=== PATIENT | female | born 1975 | race Hispanic/Latino ===

== ENCOUNTER 2019-05-01 12:17 | Emergency (ER) | payer MEDICAID, OTHER ==
[2019-05-01] MEDS ORDERED: LIDOCAINE HCL 2% VISCOUS 15 ML UDCUP ONE (13:21)
[2019-05-01] MEDS ORDERED: MAG HYDROX/AL HYDROX/SIMETH ES 30 ML SUSP UDCUP ONE (13:21)
[2019-05-01] MEDS ORDERED: ONDANSETRON HCL 4 MG/2 ML VIAL ONE (13:21)
[2019-05-01 13:40] LABS: BASOPHILS % (AUTO) 0.2 % (0.0-5.0); EOSINOPHILS % (AUTO) 1.9 % (0.0-8.0); HEMATOCRIT 40.3 % (36-48); LYMPHOCYTES % (AUTO) 26.9 % (21.0-51.0); MEAN CORPUSCULAR HEMOGLOBIN 29.7 pg (27.0-33.0); MEAN CORPUSCULAR HGB CONC 34.9 g/dL (32.0-36.0); MEAN CORPUSCULAR VOLUME 85.2 fL (79-99); MONOCYTES % (AUTO) 7.8 % (3.0-13.0); NEUTROPHILS % (AUTO) 63.2 % (40.0-77.0); PLATELET COUNT (AUTO) 268 K/uL (130-400); RED BLOOD CELL COUNT(AUTO) 4.73 MIL/uL (4.00-5.50); RED CELL DISTRIBUTION WIDTH 13.4 % (11.0-15.5); WHITE BLOOD COUNT (AUTO) 7.7 K/uL (4.8-10.8)
[2019-05-01 13:41] LABS: APPEARANCE,URINE Clear (CLEAR); BILIRUBIN,URINE Negative (NEGATIVE); COLOR,URINE Yellow (YELLOW); GLUCOSE, URINE (UA) Negative (NEGATIVE); KETONES,URINE Negative (NEGATIVE); LEUKOCYTE ESTERASE ,URINE Small (NEGATIVE); NITRATE,URINE Negative (NEGATIVE); OCCULT BLOOD,URINE Large (NEGATIVE); PH,URINE 5.5 (5.0-8.0); PROTEIN,URINE Negative (NEGATIVE)
[2019-05-01 13:47] LABS: HCG,QUAL RESULT NEGATIVE (NEGATIVE)
[2019-05-01 13:49] LABS: BACTERIA,URINE Rare /HPF (None Seen); RBC,URINE TNTC /HPF (0-1); SQUAMOUS EPITHELIAL CELL,UR Rare /HPF (0-2); WBC,URINE 0-1 /HPF (0-1)
[2019-05-01 13:50] LABS: CREATININE 0.8 mg/dL (0.5-1.5); POTASSIUM 3.4 mmol/L (3.5-5.1)
[2019-05-01 13:54] LABS: ALBUMIN 4.3 g/dL (3.5-5.0); BILIRUBIN,TOTAL 0.8 mg/dL (0.2-1.0); TOTAL PROTEIN, SERUM 8.3 g/dL (6.0-8.3)
== END 2019-05-01 13:46 | disposition home or self-care (01) ==
LOC: EDH 12:17
DX: K29.00 Acute gastritis without bleeding (principal); Z88.2 Allergy status to sulfonamides; Z88.6 Allergy status to analgesic agent; Z98.890 Other specified postprocedural states
CPT/HCPCS: 36415; 74176; 76705; 80053; 81001; 81025; 82150; 83690; 85025; 93005; 96374; 99285; J2405

== ENCOUNTER 2023-01-07 12:04 | Emergency (ER) | payer OTHER ==
[~2023-01-07] VITALS: Ht 167.6 cm; Wt 104.3 kg
[2023-01-07 12:34] LABS: BASOPHILS % (AUTO) 0.2 % (0.0-5.0); CREATININE 0.7 mg/dL (0.5-1.5); EOSINOPHILS % (AUTO) 1.3 % (0.0-8.0); LYMPHOCYTES % (AUTO) 26.4 % (21.0-51.0); MEAN CORPUSCULAR HEMOGLOBIN 29.2 pg (27.0-33.0); MONOCYTES % (AUTO) 5.1 % (3.0-13.0); NEUTROPHILS % (AUTO) 66.8 % (40.0-77.0); PLATELET COUNT (AUTO) 297 K/uL (130-400); POTASSIUM 3.5 mmol/L (3.5-5.1); RED BLOOD CELL COUNT(AUTO) 4.65 MIL/uL (4.00-5.50); RED CELL DISTRIBUTION WIDTH 13.4 % (11.0-15.5); WHITE BLOOD COUNT (AUTO) 9.7 K/uL (4.8-10.8)
[2023-01-07 12:35] LABS: INR 0.93 (0.85-1.15); PROTHROMBIN TIME 10.2 SEC (9.6-11.6)
[2023-01-07 12:37] LABS: PARTIAL THROMBOPLASTIN TIME 29.8 SEC (26.3-35.5)
[2023-01-07 12:41] LABS: ALBUMIN 4.2 g/dL (3.5-5.0); TOTAL PROTEIN, SERUM 7.8 g/dL (6.0-8.3)
[2023-01-07 13:50] LABS: B-TYPE NATRIURETIC PEPTIDE 7 pg/mL (0-100)
[2023-01-07 14:03] VITALS: BP 138/80
== END 2023-01-07 14:12 | disposition home or self-care (01) ==
LOC: EDH 12:04
DX: R20.2 Paresthesia of skin (principal); G51.0 Bell's palsy; Z88.2 Allergy status to sulfonamides; Z88.5 Allergy status to narcotic agent; Z88.8 Allergy status to other drugs, medicaments and biological substances
CPT/HCPCS: 36415; 70450; 71045; 80053; 82550; 83721; 83880; 84484; 85025; 85610; 85730; 93005

== ENCOUNTER 2023-05-26 20:34 | Emergency (ER) | payer OTHER ==
[~2023-05-26] VITALS: Ht 165.1 cm; Wt 104.3 kg
[2023-05-26] MEDS ORDERED: IBUP-2077 PO (21:38)
[2023-05-26 22:17] VITALS: BP 158/87; PULSE 96; RESP 17; O2SAT 100
== END 2023-05-26 22:19 | disposition home or self-care (01) ==
LOC: EDH 20:34
DX: S96.811A Strain of other specified muscles and tendons at ankle and foot level, right foot, initial encounter (principal); Z98.890 Other specified postprocedural states; Z88.2 Allergy status to sulfonamides; Z88.5 Allergy status to narcotic agent; Z88.8 Allergy status to other drugs, medicaments and biological substances; W18.39XA Other fall on same level, initial encounter; Y93.67 Activity, basketball; Y92.89 Other specified places as the place of occurrence of the external cause; Y99.8 Other external cause status
CPT/HCPCS: 73590; 73610

== ENCOUNTER 2024-12-16 12:51 | Emergency (ER) | payer OTHER ==
[~2024-12-16] VITALS: Ht 167.6 cm; Wt 106.6 kg
[~2024-12-16 12:51] MED LIST: IBUP-2077 PO
--- NOTE | 2024-12-16 13:12 | ERN ---
General Chief Complaint: Numbness Stated Complaint: NUMBNESS ON FACE Time Seen by MD: 12:52 Time Seen by Midlevel: 12:52 Source: patient History of Present Illness Initial Comments The patient is a 49-year-old female presenting to the emergency department for evaluation of left-sided numbness that started 30 minutes prior to arrival at approximately 12:30 p.m. today. Patient states she had arrived home when the numbness started. The numbness starts at the top of her forehead and is all the way down to her left ankle. She specifically denies any focal weakness. Denies any history of stroke. She does report a similar episode in the past that was not this intense. On arrival the patient denies any other symptoms. The patient was ambulatory without assistance and with a normal gait when she arrived. Allergies: Coded Allergies: Sulfa (Sulfonamide Antibiotics) (Unverified Allergy, Unknown, 05/01/19) alcohol (Unverified Allergy, Unknown, 01/07/23) meperidine (Unverified Allergy, Unknown, 05/01/19) morphine (Unverified Allergy, Unknown, 05/01/19) tizanidine (Unverified Allergy, Unknown, 05/01/19) Home Meds Active Scripts Ibuprofen (Ibuprofen 800 mg Tab) 800 Mg Tab, 800 MG PO Q8H PRN for PAIN for 10 Days, #60 TAB Prov:LIBBY REYES Kai BURNS 05/26/23 Past Medical History Past Medical History: Diabetes-Type II, High Cholesterol, Hypertension Past Surgical History: Other, Surgical History Other: RT FOOT ROS Dictation CONSTITUTIONAL: Negative except for HPI HEAD/FACE: Negative except for HPI EENT: Negative except for HPI RESPIRATORY: Negative except for HPI GASTROINTESTINAL/ABDOMINAL: Negative except for HPI GENITOURINARY: Negative except for HPI MUSCULOSKELETAL: Negative except for HPI INTEGUMENTARY: Negative except for HPI NEUROLOGICAL/PSYCH: Negative except for HPI HEMATOLOGIC/LYMPHATIC: Negative except for HPI All Systems Negative, Except as noted above. 13 point review of systems assessed and all negative except for above. Physical Exam Physical Exam Dictation Vital Signs reviewed General Appearance: Alert, oriented x 3, no acute distress, well developed, nourished. Head and Face: non-traumatic. Eyes: PERRL, pink conjunctivas, eyelid no trauma, anterior chamber with arcus senilis. Ears: Pinnas intact and no signs of trauma or erythema ear canals clear and no discharge TM no erythema Nose: No discharge, no bleeding. Oropharynx: Mouth normal, tongue pink, pharynx clear,no erythema, tonsils no exudates, no abscesses noted, mucous membrane moist Neck: Supple, non-tender, no thyromegaly, no masses, no JVD, no bruits Breast:Deferred Chest:No tenderness, no crepitus, no paradoxical movement, no retractions Lungs:Clear, well-ventilated, symmetric, no rales, no wheezing, no rhonchi, no stridor, good breath sounds bilaterally Heart: Regular rate, regular rhythm, no murmur, no gallops Vascular: no peripheral edema, Abdomen: Soft, positive bowel sounds, nondistended, no guarding, nontender, no rebound, no masses no hepatomegaly, no splenomegaly, no Medel's sign, no hernias. Rectal: Deferred Genital: Deferred Neurological: Normal speech, motor function intact, sensory function intact Musculoskeletal: Neck nontender, full range of motion, back nontender, full range of motion, Extremities: nontender, full range of motion Skin: Color pink, dry, no turgor, no rash, no lacerations, no abrasions, no contusions. Lymphatic: Deferred Results Laboratory and Microbiology Lab and Micro Result Laboratory Tests Test 12/16/24 13:25 White Blood Count 8.4 K/uL (4.8-10.8) Red Blood Count 4.54 MIL/uL (4.00-5.50) Hemoglobin 13.3 g/dL (12.0-16.0) Hematocrit 39.9 % (36-48) Mean Corpuscular Volume 87.9 fL (79-99) Mean Corpuscular Hemoglobin 29.3 pg (27.0-33.0) Mean Corpuscular Hemoglobin Concent 33.3 g/dL (32.0-36.0) Red Cell Distribution Width 13.2 % (11.0-15.5) Platelet Count 298 K/uL (130-400) Mean Platelet Volume 10.6 fL (7.5-10.5) H Immature Granulocyte % (Auto) 0.2 % (0-1) Neutrophils (%) (Auto) 61.4 % (40.0-77.0) Lymphocytes (%) (Auto) 30.4 % (21.0-51.0) Monocytes (%) (Auto) 5.4 % (3.0-13.0) Eosinophils (%) (Auto) 2.2 % (0.0-8.0) Basophils (%) (Auto) 0.4 % (0.0-5.0) Neutrophils # (Auto) 5.1 K/uL (1.8-7.7) Lymphocytes # (Auto) 2.5 K/uL (1.0-4.8) Monocytes # (Auto) 0.5 K/uL (0.1-1.0) Eosinophils # (Auto) 0.18 K/uL (0.00-0.70) Basophils # (Auto) 0.03 K/uL (0.00-0.20) Absolute Immature Granulocyte (auto 0.02 K/uL (0-1) Nucleated Red Blood Cells 0.0 % (0.0-0.19) Sodium Level 138 mmol/L (136-145) Potassium Level 3.7 mmol/L (3.5-5.1) Chloride Level 103 mmol/L (101-111) Carbon Dioxide Level 30 mmol/L (21-32) Blood Urea Nitrogen 9 mg/dL (7-18) Creatinine 0.7 mg/dL (0.5-1.0) Glomerular Filtration Rate Calc 107 mL/min (>90) Random Glucose 85 mg/dL (70-105) Total Calcium 8.9 mg/dL (8.5-10.1) Magnesium Level 2.00 mg/dL (1.80-2.40) Labs Reviewed?: Yes MDM MDM: The patient is a 49-year-old female presenting to the emergency department for evaluation of left-sided numbness that started 30 minutes prior to arrival at approximately 12:30 p.m. today. Patient states she had arrived home when the numbness started. The numbness starts at the top of her forehead and is all the way down to her left ankle. She specifically denies any focal weakness. Denies any history of stroke. She does report a similar episode in the past that was not this intense. On arrival the patient denies any other symptoms. The patient was ambulatory without assistance and with a normal gait when she arrived. On physical examination the patient is in no acute distress. Her neurological examination reveals some subjective numbness to the left side of her body. However she has no focal weakness. There was no facial droop. She is answering questions appropriately. She is ambulatory without assistance and with a normal gait. She has 5/5 strength to bilateral upper and lower extremities. Her CBC and chemistries are unremarkable. Her CT scan of the head is normal. On repeat examination the patient is lying in bed in a comfortable position scrolling on her phone in no acute distress. Her repeat neurological examination is unremarkable. The patient has no focal neurological deficits. She does have subjective numbness but no focal weakness. Her neurological examination is unremarkable. Patient will need to follow up outpatient for further evaluation. Differential diagnosis: TIA, stroke, dehydration, electrolyte abnormality There are no social concerns with this patient. Prescription drug management Prescriptions will include: None Medical management and examination interpretation discussions were had by me with other qualified healthcare professionals as indicated for the patient's care. ED Course Orders Procedure Category Date Status Time Cbc With Differential LAB 12/16/24 Complete 13:03 Basic Metabolic Panel LAB 12/16/24 Complete 13:03 Magnesium LAB 12/16/24 Complete 13:03 Ct Head/Brain W/O CT 12/16/24 Resulted Contrast 13:03 Vital Signs Date Time Temp Pulse Resp B/P (MAP) Pulse Ox O2 Delivery O2 Flow Rate FiO2 12/16/24 16:21 98.2 80 16 120/69 100 Room Air* 0 21 12/16/24 13:44 98.2 84 16 112/74 98 Room Air* 0 21 12/16/24 12:59 97.3 86 20 104/75 99 0 4:30PM on repeat examination the patient is lying in bed comfortably. She is scrolling on her phone in no acute distress. Her neurological examination is unremarkable. Discussed lab and imaging findings. The patient will need to follow up outpatient with Neurology for further evaluation. Her workup today is unremarkable. DX & DISP Disposition: Discharge Departure Impression: Primary Impression: Paresthesia Condition: Stable Additional Instructions: Your blood work today is unremarkable. You are not anemic. Your electrolytes are normal. Your kidney function is normal. Your CT scan of the head is normal. You will need to follow up with Neurology outpatient for further evaluation. You will need to follow up with your primary care doctor in 2-3 days for repeat evaluation. Return to the ER for any new or worsening symptoms. Referrals: CORAL WAGONER DO (PCP) VIKAS MAYA MD Time of Disposition: 16:19 I have reviewed the case, and I agree with, Diagnosis and Plan I performed the substantive portion of the visit. I have reviewed and personally made and approve the management plan that is documented in the note by myself or the JENNI. I acknowledge for responsibility for the patient's management plan. PAULINE THOMPSON December 16, 2024 13:12
[2024-12-16 13:33] LABS: BASOPHILS # (AUTO) 0.03 K/uL (0.00-0.20); BASOPHILS % (AUTO) 0.4 % (0.0-5.0); EOSINOPHILS # (AUTO) 0.18 K/uL (0.00-0.70); EOSINOPHILS % (AUTO) 2.2 % (0.0-8.0); HEMATOCRIT 39.9 % (36-48); IMMATURE GRANULOCYTE ABSOLUTE 0.02 K/uL (0-1); LYMPHOCYTES # (AUTO) 2.5 K/uL (1.0-4.8); LYMPHOCYTES % (AUTO) 30.4 % (21.0-51.0); MEAN CORPUSCULAR HEMOGLOBIN 29.3 pg (27.0-33.0); MEAN CORPUSCULAR HGB CONC 33.3 g/dL (32.0-36.0); MEAN CORPUSCULAR VOLUME 87.9 fL (79-99); MONOCYTES # (AUTO) 0.5 K/uL (0.1-1.0); MONOCYTES % (AUTO) 5.4 % (3.0-13.0); NEUTROPHILS # (AUTO) 5.1 K/uL (1.8-7.7); NEUTROPHILS % (AUTO) 61.4 % (40.0-77.0); PLATELET COUNT (AUTO) 298 K/uL (130-400); RED BLOOD CELL COUNT(AUTO) 4.54 MIL/uL (4.00-5.50); RED CELL DISTRIBUTION WIDTH 13.2 % (11.0-15.5); WHITE BLOOD COUNT (AUTO) 8.4 K/uL (4.8-10.8)
[2024-12-16 13:43] LABS: CREATININE 0.7 mg/dL (0.5-1.0); POTASSIUM 3.7 mmol/L (3.5-5.1)
--- NOTE | 2024-12-16 15:55 | HMCIMG ---
Exam Type: CT HEAD/BRAIN W/O CONTRAST Clinical Information: numbness to left side Comparison: None CT Dose Index (CTDI): 57.33 mGy Dose Length Product (DLP): 956.79 total mGy-cm Findings: The examination is unremarkable. Clarke-white matter junction is preserved. No intra or extra axial lesions or fluid collections are seen. Specifically, clarke and white matter are normal in signal characteristics with normal caliber of ventricles and periventricular cisterns with no evidence of intra or or extra-axial hemorrhage, lacunar infarct, or major territorial infarct, mass, or other abnormality. There are no infarcts. There are no hemorrhages. Periventricular white matter locations are preserved. The orbital contents and structures of the posterior fossa are intact. Impression: Normal CT of the head. This study was performed using dose reduction techniques to include automated exposure control and/or adjustment of the mA and/or kV according to patient size.
[2024-12-16 16:21] VITALS: BP 120/69; PULSE 80; RESP 16; TEMP 98.3; O2SAT 100
--- NOTE | 2024-12-16 16:26 | NUR ---
DC PENDING PA EXPLANATION AND REASONING ARROUND DISCHARGE
== END 2024-12-16 16:56 | disposition home or self-care (01) ==
LOC: EDH 12:51
DX: R20.2 Paresthesia of skin (principal); E11.9 Type 2 diabetes mellitus without complications; E78.00 Pure hypercholesterolemia, unspecified; I10 Essential (primary) hypertension; Z88.2 Allergy status to sulfonamides; Z88.5 Allergy status to narcotic agent
CPT/HCPCS: 36415; 70450; 80048; 83735; 85025; 99284